=== PATIENT | male | born 1965 | race Caucasian/White ===

== ENCOUNTER 2016-08-21 08:17 | Emergency (ER) | payer MEDICAID ==
[~2016-08-21] VITALS: Ht 182.9 cm; Wt 100.0 kg
[2016-08-21 08:18] VITALS: BP 148/97; PULSE 100; RESP 16; TEMP 98.2; O2SAT 99
[2016-08-21 09:29] VITALS: BP 179/111; PULSE 81; RESP 16; O2SAT 98
--- NOTE | 2016-08-21 09:58 | PD ---
HPI Chief Complaint: ENT Complaint Time Seen by Provider: 09:53 Travel History International Travel<30 days: No Contact w/Intl Traveler<30days: No Traveled to known affect area: No History of Present Illness HPI 51-year-old male presented to [facility] with bilateral hearing loss over the past 24 hours. Patient states she's had intermittent hearing loss over the past week. Patient has a history of cerumen impaction in the past. He has mild pain in the left ear. Patient has been trying to get the wax out himself without improvement. He has no fever, chills, sore throat, or other symptoms. He allergies. [facility] Social History Alcohol Use: Yes Tobacco Use: No Substance Use: No Allergies-Medications (Allergen,Severity, Reaction): Coded Allergies: No Known Allergies (Unverified , 08/21/16) Reported Meds & Prescriptions Reported Meds & Active Scripts Active No Active Prescriptions or Reported Medications Review of Systems Except as stated in HPI: all other systems reviewed are Neg General / Constitutional: No: Fever Eyes: No: Visual changes HENT: Positive: Earache, Other (bilateral decreased hearing.), No: Headaches Cardiovascular: No: Chest Pain or Discomfort Respiratory: No: Shortness of Breath Gastrointestinal: No: Abdominal Pain Genitourinary: No: Dysuria Musculoskeletal: No: Pain Skin: No Rash Neurologic: No: Weakness Psychiatric: No: Depression Endocrine: No: Polydipsia Hematologic/Lymphatic: No: Easy Bruising Physical Exam Narrative GENERAL: Patient appears no acute distress. SKIN: Warm and dry. Normal color. Normal turgor. HEAD: Atraumatic. Normocephalic. EYES: Pupils equal and round. No scleral icterus. No injection or drainage. ENT: No nasal bleeding or discharge. Mucous membranes pink and moist. Both ear canals are full of wax with cerumen impaction bilaterally. No tenderness with movement of the pinna. Pharynx is clear. Airway is patent. No sinus tenderness to palpation. NECK: Trachea midline. Supple and nontender. CARDIOVASCULAR: Regular rate and rhythm. RESPIRATORY: No accessory muscle use. Clear to auscultation. Breath sounds equal bilaterally. MUSCULOSKELETAL: Extremities without clubbing, cyanosis, or edema. No obvious deformities. NEUROLOGICAL: Awake and alert. No obvious cranial nerve deficits. Motor grossly within normal limits. Five out of 5 muscle strength in the arms and legs. Normal speech. PSYCHIATRIC: Appropriate mood and affect; insight and judgment normal. Data Data Last Documented VS Vital Signs Date Time Temp Pulse Resp B/P Pulse Ox O2 Delivery O2 Flow Rate FiO2 08/21/16 09:29 81 16 179/111 98 Room Air 08/21/16 08:18 98.2 [facility] Medical Decision Making Medical Screen Exam Complete: Yes Emergency Medical Condition: Yes Differential Diagnosis Decreased hearing. Cerumen impaction. Otitis media. TM perforation. Otitis externa. Narrative Course Cerumen impaction is noted in both ear canals. Ear lavage is performed by myself to both ears with removal of wax without difficulty. Possible TM perforation is noted on the left with localized erythema. Patient will be treated with Cortisporin optic drops to the left ear 3 times a day for the next 10 days. Patient should follow with his primary care physician or return to emergency department as needed. Diagnosis Primary Impression: Impacted cerumen of both ears Additional Impression: Perforated left tympanic membrane on examination Referrals: Primary Care Physician 1 week Patient Instructions: Cerumen Impaction (ED), General Instructions Additional Instructions: Ear lavage is performed by myself to both ears with removal of wax without difficulty. Possible TM perforation is noted on the left with localized erythema. Patient will be treated with Cortisporin optic drops to the left ear 3 times a day for the next 10 days. Patient should follow with his primary care physician or return to emergency department as needed. Med/Other Pt SpecificInfo: Prescription(s) given Scripts No Active Prescriptions or Reported Meds Disposition: 01 DISCHARGE HOME Condition: Stable Solis Goddard Aug 21, 2016 09:58
[2016-08-21] MEDS ORDERED: CIPRHC10A LEFT EAR (10:03)
[2016-08-21] MEDS ORDERED: NEOM1SOL7 LEFT EAR (10:04)
== END 2016-08-21 10:27 | disposition home or self-care (01) ==
LOC: NEPD 08:17
DX: H61.23 Impacted cerumen, bilateral (principal); H72.92 Unspecified perforation of tympanic membrane, left ear
CPT/HCPCS: 99283